=== PATIENT | female | born 1970 | race Caucasian/White ===

== ENCOUNTER → 2016-09-03 | Outpatient (CLI) | payer OTHER ==
--- NOTE | 2016-09-04 10:37 | MM ---
Reason for exam: screening (asymptomatic). Last mammogram was performed 1 year and 1 month ago. History: Breast lifts, 2012. Physical Findings: A clinical breast exam by your physician is recommended on an annual basis and results should be correlated with mammographic findings. MG Screening Mammo w CAD Bilateral CC and MLO view(s) were taken. Prior study comparison: April 05, 2014, bilateral MG screening mammo w CAD. There are scattered fibroglandular densities. There is no discrete abnormality. ASSESSMENT: Negative, BI-RAD 1 RECOMMENDATION: Routine screening mammogram of both breasts in 1 year.
== END | disposition home or self-care (01) ==
LOC: RADMAMWWP 06:50
PROVIDERS: ATTEND Obstetrics & Gynecology
DX: Z12.31 Encounter for screening mammogram for malignant neoplasm of breast (principal)

== ENCOUNTER → 2017-03-17 | Outpatient (CLI) | payer OTHER ==
[2017-03-17 14:19] VITALS: BP 141/84; PULSE 84; TEMP 98.2; BMI 27.4
--- NOTE | 2017-03-17 15:22 | P.HPBAR ---
Bariatric H&P - History & Physicial H&P Date: 03/17/17 History & Physicial: Visit/CC: lap band follow up Patient initial contact: Initial weight: 154.221 kg Initial weight in pounds: 340.00 Height: 5 ft 6 in Initial BMI: 54.8 Last weight: Current weight: 77.111 kg Current weight in pounds: 170.00 Current BMI: 27.4 [place] body weight (based on NIH guidelines): 58.967 kg Excess body weight loss: 80.9% The patient is a 47 year-old F who presents for Bariatric Assessment. Patient presents today for lab band follow up. She is requesting a fill of her LAP- BAND. Her band was emptied last visit for a repeat procedure. Past Medical History Past Medical History: No Reported History History of Any Multi-Drug Resistant Organisms: None Reported Past Surgical History: Bariatric Surgery, Section, Orthopedic Surgery Additional Past Surgical History / Comment(s): right knee meniscus repair lap band surgery panniculectomy Past Anesthesia/Blood Transfusion Reactions: No Reported Reaction Smoking Status: Never smoker Surgical - Exam Vital Signs Temp Pulse BP 98.2 F 84 141/84 03/17/17 14:15 03/17/17 14:15 03/17/17 14:15 - General well developed, no distress - Eyes PERRL - Abdomen Abdomen: soft, non tender Bariatric Assessment & Plan Plan: The patient LAP-BAND was adjusted. She had 4.5 mL added to her band. She'll follow-up in one month. Bariatric Checklist Checklist: Plan: Checklist: EGD: 1. Hiatal hernia: 2. H. Pylori: HgbA1c: Vitamin D: Smoking: Never smoker Primary care physician referral: [facility] Psychiatry clearance: Cardiology clearance: Sleep study: Diet journal: VTE risk score: VTE risk level: Rehab needs at discharge:
== END | disposition home or self-care (01) ==
LOC: BARWHC3 13:56
PROVIDERS: ATTEND Surgery
DX: Z48.815 Encounter for surgical aftercare following surgery on the digestive system (principal); Z98.84 Bariatric surgery status
CPT/HCPCS: 99212

== ENCOUNTER → 2017-03-24 | Outpatient (CLI) | payer OTHER ==
[2017-03-24 14:27] VITALS: BP 144/69; PULSE 72; RESP 15; TEMP 98; BMI 30.7
--- NOTE | 2017-03-24 16:15 | P.HPBAR ---
Bariatric H&P - History & Physicial H&P Date: 03/24/17 History & Physicial: Visit/CC: band fill (had to have emptied for knee sx on 03/14/17) Patient initial contact: Initial weight: 154.221 kg Initial weight in pounds: 340.00 Height: 5 ft 3 in Initial BMI: 60.2 Last weight: Current weight: 78.562 kg Current weight in pounds: 173.20 Current BMI: 30.7 [place] body weight (based on NIH guidelines): 52.163 kg Excess body weight loss: 74.1% The patient is a 47 year-old F who presents for Bariatric Assessment. The patient is requesting an adjustment of her LAP-BAND. She currently feels hungry. Past Medical History Past Medical History: No Reported History History of Any Multi-Drug Resistant Organisms: None Reported Past Surgical History: Bariatric Surgery, Section, Orthopedic Surgery Additional Past Surgical History / Comment(s): right knee meniscus repair lap band surgery, panniculectomy Past Anesthesia/Blood Transfusion Reactions: No Reported Reaction Past Psychological History: No Psychological Hx Reported Smoking Status: Never smoker Past Alcohol Use History: None Reported Past Drug Use History: None Reported Surgical - Exam Vital Signs Temp Pulse Resp BP 98.0 F 72 15 144/69 03/24/17 14:18 03/24/17 14:18 03/24/17 14:18 03/24/17 14:18 - General well developed, no distress - Abdomen Abdomen: soft, non tender Bariatric Assessment & Plan Plan: The patient LAP-BAND was adjusted. 1 mL was added to her band. She will follow -up in one month. She was able drink water without difficulty. Bariatric Checklist Checklist: Plan: Checklist: EGD: 1. Hiatal hernia: 2. H. Pylori: HgbA1c: Vitamin D: Smoking: Never smoker Primary care physician referral: [facility] Psychiatry clearance: Cardiology clearance: Sleep study: Diet journal: VTE risk score: VTE risk level: Rehab needs at discharge:
== END | disposition home or self-care (01) ==
LOC: BARWHC3 13:53
PROVIDERS: ATTEND Surgery
DX: Z48.815 Encounter for surgical aftercare following surgery on the digestive system (principal); Z98.84 Bariatric surgery status
CPT/HCPCS: 99212

== ENCOUNTER → 2017-12-30 | Outpatient (CLI) | payer OTHER ==
--- NOTE | 2017-12-30 15:32 | MM ---
Reason for exam: screening (asymptomatic). Last mammogram was performed 1 year and 4 months ago. History: Breast lifts, 2012. Physical Findings: A clinical breast exam by your physician is recommended on an annual basis and results should be correlated with mammographic findings. MG Screening Mammo w CAD Bilateral CC and MLO view(s) were taken. Prior study comparison: September 03, 2016, bilateral MG screening mammo w CAD. August 16, 2015, bilateral MG 3d diag mammo w/cad CORRY. The breast tissue is heterogeneously dense. This may lower the sensitivity of mammography. Finding: There are typically benign dystrophic, round calcifications in the left breast. There is no discrete abnormality. ASSESSMENT: Benign, BI-RAD 2 RECOMMENDATION: Routine screening mammogram of both breasts in 1 year.
== END ==
LOC: RADMAMWWP 07:04
PROVIDERS: ATTEND Obstetrics & Gynecology
DX: Z12.31 Encounter for screening mammogram for malignant neoplasm of breast (principal)
CPT/HCPCS: 77067

== ENCOUNTER 2021-11-13 15:01 | Emergency (ER) | payer OTHER ==
[2021-11-13 16:09] LABS: Basophils % (A) 1 %; Eosinophils # (A) 0.1 k/uL (0-0.7); Eosinophils % (A) 1 %; HCT 43.3 % (34.0-46.0); HGB 13.2 gm/dL (11.4-16.0); Lymphocytes # (A) 1.3 k/uL (1.0-4.8); Lymphocytes % (A) 15 %; MCH 27.1 pg (25.0-35.0); MCHC 30.4 g/dL (31.0-37.0); MCV 89.1 fL (80.0-100.0); Mean Platelet Volume 7.4; Monocytes # (A) 0.4 k/uL (0-1.0); Monocytes % (A) 5 %; Neutrophils # (A) 6.5 k/uL (1.3-7.7); Neutrophils % (A) 76 %; Platelet Count 211 k/uL (150-450); RBC 4.86 m/uL (3.80-5.40); RDW 12.9 % (11.5-15.5); WBC 8.5 k/uL (3.8-10.6)
[2021-11-13 16:20] LABS: ALT 10 U/L (4-34); AST 26 U/L (14-36); African American GFR (CKD) >90 (>60 ml/min/1.73 sqM); Albumin 4.4 g/dL (3.5-5.0); Alkaline Phosphatase 95 U/L (38-126); Amylase 164 U/L (30-110); Anion Gap 8 mmol/L; Blood Urea Nitrogen 17 mg/dL (7-17); Calcium 9.3 mg/dL (8.4-10.2); Carbon Dioxide 29 mmol/L (22-30); Chloride 103 mmol/L (98-107); Glucose 92 mg/dL (74-99); Lipase 127 U/L (23-300); Non-African American GFR(CKD) >90 (>60 ml/min/1.73 sqM); Potassium 3.8 mmol/L (3.5-5.1); Sodium 140 mmol/L (137-145); Total Bilirubin 0.4 mg/dL (0.2-1.3); Total Protein 7.5 g/dL (6.3-8.2)
[2021-11-13] MEDS ORDERED: MORPHINE SULFATE 2 MG/ML SYRINGE IVP STA (18:37)
[2021-11-13] MEDS ORDERED: ONDANSETRON 4 MG/2 ML VIAL IVP STA (18:37)
[2021-11-13] MEDS ORDERED: SODIUM CHLORIDE 0.9% 1,000 ML IV STA (18:37)
--- NOTE | 2021-11-13 19:00 | ED ---
Abdominal Pain HPI - General Chief Complaint: Abdominal Pain Stated Complaint: Abd pain Time Seen by Provider: 11/13/21 18:25 Source: patient Mode of arrival: ambulatory Limitations: no limitations - History of Present Illness Initial Comments: Patient is a 51-year-old female presenting with chief complaint of abdominal pain. Pain is located in the center of the abdomen, patient states it feels like a very tight squeezing pain that comes in waves. The pain radiates through to the back. At times the pain is so bad that she feels like she is going to vomit, denies any vomiting. Patient had lap band surgery performed by Dr. Hill in 2016, otherwise no other abdominal surgeries. Patient states that last week she was experiencing chest pain, however today she denies any chest pain or shortness of breath. Patient states the pain does not change with movement or different positions. Unchanged by food. Denies any diarrhea, constipation, hematochezia, melena, dysuria, hematuria, urgency, frequency. - Related Data Home Medications Medication Instructions Recorded Confirmed No Known Home Medications 03/17/17 11/13/21 Allergies Allergy/AdvReac Type Severity Reaction Status Date / Time No Known Allergies Allergy Verified 11/13/21 20:51 Review of Systems ROS Statement: Those systems with pertinent positive or pertinent negative responses have been documented in the HPI. ROS Other: All systems not noted in ROS Statement are negative. Past Medical History Past Medical History: No Reported History History of Any Multi-Drug Resistant Organisms: None Reported Past Surgical History: Bariatric Surgery, Section, Orthopedic Surgery Additional Past Surgical History / Comment(s): right knee meniscus repair 03-14-17 lap band surgery, panniculectomy Past Anesthesia/Blood Transfusion Reactions: No Reported Reaction Past Psychological History: No Psychological Hx Reported Smoking Status: Never smoker Past Alcohol Use History: None Reported Past Drug Use History: None Reported General Exam Limitations: no limitations General appearance: alert, in no apparent distress Head exam: Present: atraumatic, normocephalic, normal inspection Eye exam: Present: normal appearance, EOMI. Absent: scleral icterus Neck exam: Present: normal inspection Respiratory exam: Present: normal lung sounds bilaterally. Absent: respiratory distress, wheezes, rales, rhonchi, stridor Cardiovascular Exam: Present: regular rate, normal rhythm, normal heart sounds. Absent: systolic murmur, diastolic murmur, rubs, gallop, clicks GI/Abdominal exam: Present: soft, tenderness (Diffuse mild tenderness), normal bowel sounds. Absent: distended, guarding, rebound, rigid Neurological exam: Present: alert, oriented X3, CN II-XII intact Psychiatric exam: Present: normal affect, normal mood Skin exam: Present: warm, dry, intact, normal color. Absent: rash Course Vital Signs 11/13/21 11/13/21 11/13/21 15:34 20:39 22:00 Temperature 98.2 F 98.1 F 98.2 F Pulse Rate 51 L 66 78 Respiratory 18 15 16 Rate Blood Pressure 151/83 124/70 128/78 O2 Sat by Pulse 99 99 98 Oximetry Medical Decision Making - Medical Decision Making Patient is a 51-year-old female presenting with chief complaint of abdominal pain. Pain is colicky in nature, located in the center of the abdomen. She is still having bowel movements, denies any diarrhea or constipation. Patient underwent lap band surgery approximately 10 years ago performed by Dr. Madden. On examination there are normal bowel sounds in all 4 quadrants, patient has minimal tenderness diffusely. Abdomen is soft and nondistended. Patient was given fluids and 2 mg morphine. Lab work is grossly negative. Urine shows signs of contamination. KUB x-ray is suggestive of small bowel obstruction or ileus. CT of the abdomen and pelvis with contrast shows large stool burdened throughout the colon, no evidence of bowel obstruction. Lap band is in place with upstream esophageal dilation containing ingested contents. I spoke with Dr. Hill about these findings. He stated he would be able to see the patient in the office tomorrow at 9 AM. Educated the patient on these findings, I encouraged her to follow up with Dr. Hill at the bariatric center tomorrow morning. Educated her on bowel hygiene, encouraged the use of MiraLAX. Answered all questions and discussed return parameters alarm symptoms. Patient conveyed verbal understanding and agreed to the plan. My attending is Dr. Medina. - Lab Data Result diagrams: 11/13/21 15:44 11/13/21 15:44 Lab Results 11/13/21 11/13/21 11/13/21 Range/Units 15:44 15:44 18:43 WBC 8.5 (3.8-10.6) k/uL RBC 4.86 (3.80-5.40) m/uL Hgb 13.2 (11.4-16.0) gm/dL Hct 43.3 (34.0-46.0) % MCV 89.1 (80.0-100.0) fL MCH 27.1 (25.0-35.0) pg MCHC 30.4 L (31.0-37.0) g/dL RDW 12.9 (11.5-15.5) % Plt Count 211 (150-450) k/uL MPV 7.4 Neutrophils % 76 % Lymphocytes % 15 % Monocytes % 5 % Eosinophils % 1 % Basophils % 1 % Neutrophils # 6.5 (1.3-7.7) k/uL Lymphocytes # 1.3 (1.0-4.8) k/uL Monocytes # 0.4 (0-1.0) k/uL Eosinophils # 0.1 (0-0.7) k/uL Basophils # 0.0 (0-0.2) k/uL PT 10.6 (9.0-12.0) sec INR 1.0 (<1.2) APTT 22.1 (22.0-30.0) sec Sodium 140 (137-145) mmol/L Potassium 3.8 (3.5-5.1) mmol/L Chloride 103 (98-107) mmol/L Carbon Dioxide 29 (22-30) mmol/L Anion Gap 8 mmol/L BUN 17 (7-17) mg/dL Creatinine 0.71 (0.52-1.04) mg/dL Est GFR (CKD-EPI)AfAm >90 (>60 ml/min/1.73 sqM) Est GFR (CKD-EPI)NonAf >90 (>60 ml/min/1.73 sqM) Glucose 92 (74-99) mg/dL Plasma Lactic Acid Hemal (0.7-2.0) mmol/L Calcium 9.3 (8.4-10.2) mg/dL Total Bilirubin 0.4 (0.2-1.3) mg/dL AST 26 (14-36) U/L ALT 10 (4-34) U/L Alkaline Phosphatase 95 (38-126) U/L Troponin I (0.000-0.034) ng/mL Total Protein 7.5 (6.3-8.2) g/dL Albumin 4.4 (3.5-5.0) g/dL Amylase 164 H (30-110) U/L Lipase 127 (23-300) U/L Urine Color Urine Appearance (Clear) Urine pH (5.0-8.0) Ur Specific [place] (1.001-1.035) Urine Protein (Negative) Urine Glucose (UA) (Negative) Urine Ketones (Negative) Urine Blood (Negative) Urine Nitrite (Negative) Urine Bilirubin (Negative) Urine Urobilinogen (<2.0) mg/dL Ur Leukocyte Esterase (Negative) Urine RBC (0-5) /hpf Urine WBC (0-5) /hpf Ur Squamous Epith Cells (0-4) /hpf Urine Bacteria (None) /hpf Urine Mucus (None) /hpf Urine HCG, Qual (Not Detectd) 11/13/21 11/13/21 11/13/21 Range/Units 18:43 18:43 18:43 WBC (3.8-10.6) k/uL RBC (3.80-5.40) m/uL Hgb (11.4-16.0) gm/dL Hct (34.0-46.0) % MCV (80.0-100.0) fL MCH (25.0-35.0) pg MCHC (31.0-37.0) g/dL RDW (11.5-15.5) % Plt Count (150-450) k/uL MPV Neutrophils % % Lymphocytes % % Monocytes % % Eosinophils % % Basophils % % Neutrophils # (1.3-7.7) k/uL Lymphocytes # (1.0-4.8) k/uL Monocytes # (0-1.0) k/uL Eosinophils # (0-0.7) k/uL Basophils # (0-0.2) k/uL PT (9.0-12.0) sec INR (<1.2) APTT (22.0-30.0) sec Sodium (137-145) mmol/L Potassium (3.5-5.1) mmol/L Chloride (98-107) mmol/L Carbon Dioxide (22-30) mmol/L Anion Gap mmol/L BUN (7-17) mg/dL Creatinine (0.52-1.04) mg/dL Est GFR (CKD-EPI)AfAm (>60 ml/min/1.73 sqM) Est GFR (CKD-EPI)NonAf (>60 ml/min/1.73 sqM) Glucose (74-99) mg/dL Plasma Lactic Acid Hemal 1.4 (0.7-2.0) mmol/L Calcium (8.4-10.2) mg/dL Total Bilirubin (0.2-1.3) mg/dL AST (14-36) U/L ALT (4-34) U/L Alkaline Phosphatase (38-126) U/L Troponin I (0.000-0.034) ng/mL Total Protein (6.3-8.2) g/dL Albumin (3.5-5.0) g/dL Amylase (30-110) U/L Lipase (23-300) U/L Urine Color Yellow Urine Appearance Cloudy H (Clear) Urine pH 5.5 (5.0-8.0) Ur Specific [place] 1.028 (1.001-1.035) Urine Protein Trace H (Negative) Urine Glucose (UA) Negative (Negative) Urine Ketones 1+ H (Negative) Urine Blood Negative (Negative) Urine Nitrite Negative (Negative) Urine Bilirubin Negative (Negative) Urine Urobilinogen 2.0 (<2.0) mg/dL Ur Leukocyte Esterase Large H (Negative) Urine RBC 8 H (0-5) /hpf Urine WBC 33 H (0-5) /hpf Ur Squamous Epith Cells 20 H (0-4) /hpf Urine Bacteria Rare H (None) /hpf Urine Mucus Moderate H (None) /hpf Urine HCG, Qual Not Detected (Not Detectd) 11/13/21 Range/Units 18:43 WBC (3.8-10.6) k/uL RBC (3.80-5.40) m/uL Hgb (11.4-16.0) gm/dL Hct (34.0-46.0) % MCV (80.0-100.0) fL MCH (25.0-35.0) pg MCHC (31.0-37.0) g/dL RDW (11.5-15.5) % Plt Count (150-450) k/uL MPV Neutrophils % % Lymphocytes % % Monocytes % % Eosinophils % % Basophils % % Neutrophils # (1.3-7.7) k/uL Lymphocytes # (1.0-4.8) k/uL Monocytes # (0-1.0) k/uL Eosinophils # (0-0.7) k/uL Basophils # (0-0.2) k/uL PT (9.0-12.0) sec INR (<1.2) APTT (22.0-30.0) sec Sodium (137-145) mmol/L Potassium (3.5-5.1) mmol/L Chloride (98-107) mmol/L Carbon Dioxide (22-30) mmol/L Anion Gap mmol/L BUN (7-17) mg/dL Creatinine (0.52-1.04) mg/dL Est GFR (CKD-EPI)AfAm (>60 ml/min/1.73 sqM) Est GFR (CKD-EPI)NonAf (>60 ml/min/1.73 sqM) Glucose (74-99) mg/dL Plasma Lactic Acid Hemal (0.7-2.0) mmol/L Calcium (8.4-10.2) mg/dL Total Bilirubin (0.2-1.3) mg/dL AST (14-36) U/L ALT (4-34) U/L Alkaline Phosphatase (38-126) U/L Troponin I <0.012 (0.000-0.034) ng/mL Total Protein (6.3-8.2) g/dL Albumin (3.5-5.0) g/dL Amylase (30-110) U/L Lipase (23-300) U/L Urine Color Urine Appearance (Clear) Urine pH (5.0-8.0) Ur Specific [place] (1.001-1.035) Urine Protein (Negative) Urine Glucose (UA) (Negative) Urine Ketones (Negative) Urine Blood (Negative) Urine Nitrite (Negative) Urine Bilirubin (Negative) Urine Urobilinogen (<2.0) mg/dL Ur Leukocyte Esterase (Negative) Urine RBC (0-5) /hpf Urine WBC (0-5) /hpf Ur Squamous Epith Cells (0-4) /hpf Urine Bacteria (None) /hpf Urine Mucus (None) /hpf Urine HCG, Qual (Not Detectd) Disposition Clinical Impression: Constipation Disposition: HOME SELF-CARE Condition: Good Instructions (If sedation given, give patient instructions): Constipation (ED), High Fiber Diet (ED) Additional Instructions: Follow-up with Dr. Hill at the bariatric Center tomorrow at 9 AM. Follow-up with PCP in one to 2 days. Report back to ER if any worsening symptoms, including but not limited to worsening pain, vomiting, inability to have bowel movement pass flatulence, fever, chills, chest pain, shortness of breath, difficulty swallowing. Is patient prescribed a controlled substance at d/c from ED?: No Referrals: Jacky Curry MD [Primary Care Provider] - 1-2 days Stephan Hill MD [STAFF PHYSICIAN] - 1-2 days Time of Disposition: 21:27
[2021-11-13 19:11] LABS: Appearance,Urine Cloudy (Clear); Bacteria,Urine Rare /hpf; Bilirubin,Urine Negative (Negative); Blood,Urine Negative (Negative); Color,Urine Yellow; Glucose,Urine (UA) Negative (Negative); Ketones,Urine 1+ (Negative); Leukocyte Esterase,Urine Large (Negative); Mucus,Urine Moderate /hpf; Nitrite,Urine Negative (Negative); PH, Urine 5.5 (5.0-8.0); Protein,Urine Trace (Negative); RBC,Urine 8 /hpf (0-5); Specific Gravity,Urine 1.028 (1.001-1.035); Squamous Epithelial Cell,Urine 20 /hpf (0-4); WBC,Urine 33 /hpf (0-5)
[2021-11-13 19:14] LABS: Partial Thromboplastin Time 22.1 sec (22.0-30.0); Prothrombin Time 10.6 sec (9.0-12.0)
--- NOTE | 2021-11-13 19:43 | XR ---
EXAMINATION TYPE: XR KUB DATE OF EXAM: 11/13/2021 7:29 PM INDICATION: Patient age:Female; 51 years old; Reason for study: abdominal pain; COMPARISON: None. TECHNIQUE: One radiographic view of the abdomen was obtained. FINDINGS: Gastric lap band is present. Angle appears appropriate. There is a prior and tubing appear intact. Multiple air-fluid levels are seen throughout the predominantly right abdomen also on the lef t as well. IMPRESSION: Multiple air-fluid levels throughout the abdomen. Clinical correlation and further workup for small b owel obstruction and/or ileus is recommended.
--- NOTE | 2021-11-13 20:37 | CT ---
EXAMINATION TYPE: CT abdomen pelvis w con CT DLP: 811.9 mGycm, Automated exposure control for dose reduction was used. DATE OF EXAM: 11/13/2021 8:17 PM COMPARISON: None CLINICAL INDICATION:Female, 51 years old with history of Epigastric pain; TECHNIQUE: Standard CT of the abdomen and pelvis following the administration of 100 cc of Isovue 300 IV contrast material and oral contrast. Coronal and sagittal reformats were performed. FINDINGS: LOWER CHEST: Unremarkable ABDOMEN LIVER: Unremarkable GALLBLADDER AND BILE DUCTS: Unremarkable. PANCREAS: Unremarkable. SPLEEN: Unremarkable. ADRENAL GLANDS: Unremarkable. KIDNEYS AND URETERS: No evidence of hydronephrosis or renal calculus. The ureters are unremarkable. PELVIS BLADDER: Unremarkable REPRODUCTIVE: Unremarkable. ABDOMEN & PELVIS STOMACH AND BOWEL: Gastric lap band is identified and appears within appropriate position. There is l ayering fluid within the distal esophagus which is partially dilated. There is a large stool burden s een throughout the colon predominantly fluid from the cecum to the descending colon and feces within the sigmoid colon and rectum. No evidence of bowel obstruction. PERITONEUM: No evidence of pneumoperitoneum or free fluid. VASCULATURE: No evidence of aortic aneurysm. MUSCULOSKELETAL: No acute osseous abnormalities. LYMPH NODES: No gross evidence for lymphadenopathy. SOFT TISSUE/ABDOMINAL WALL: Unremarkable IMPRESSION: 1. Lap band in place with upstream esophageal dilation containing ingested contents. Correlate for re flux and/or dysmotility. 2. Large stool burden throughout the colon which is dilated with fluid in the cecum to descending col on and formed fecal material in the sigmoid colon. No evidence of bowel obstruction.
[2021-11-13 22:02] VITALS: BP 128/78; PULSE 78; RESP 16; TEMP 98.2
== END 2021-11-13 22:00 | disposition home or self-care (01) ==
LOC: EC 15:01
DX: K59.00 Constipation, unspecified (principal)
CPT/HCPCS: 99284; 96374; 96375; 36415; 93005; 80053; 82150; 83605; 83690; 84484; 85025; 85610; 85730; 81001; 81025; 87086; 74018; 74177; 96361; J2405; J2270; Q9967

== ENCOUNTER → 2021-11-14 | Outpatient (CLI) | payer OTHER ==
[2021-11-14 09:30] VITALS: BP 116/74; PULSE 69; TEMP 98.2; BMI 27.3
--- NOTE | 2021-11-14 10:10 | P.HPBAR ---
Bariatric H&P - History & Physicial H&P Date: 11/14/21 History & Physicial: Visit/CC: lap band follow up Patient initial contact: Initial weight: 154.221 kg Initial weight in pounds: 340.00 Height: 5 ft 3 in Initial BMI: 60.2 Last weight: Current weight: 69.853 kg Current weight in pounds: 154.00 Current BMI: 27.3 [place] body weight (based on NIH guidelines): 52.163 kg Excess body weight loss: 82.6% The patient is a 51 year-old F who presents for Bariatric Assessment. Patient dysphagia and epigastric pain. Receiving mention last night. She is found have dilated esophagus suggestive of a restrictive LAP-BAND. Past Medical History Past Medical History: No Reported History History of Any Multi-Drug Resistant Organisms: None Reported Past Surgical History: Bariatric Surgery, Section, Orthopedic Surgery Additional Past Surgical History / Comment(s): right knee meniscus repair 03-14-17 lap band surgery, panniculectomy Past Anesthesia/Blood Transfusion Reactions: No Reported Reaction Past Psychological History: No Psychological Hx Reported Smoking Status: Never smoker Past Alcohol Use History: None Reported Past Drug Use History: None Reported Surgical - Exam Vital Signs Temp Pulse BP 98.2 F 69 116/74 11/14/21 09:27 11/14/21 09:27 11/14/21 09:27 - General well developed, well nourished, no distress - Eyes PERRL - ENT normal pinna - Neck no masses - Respiratory normal expansion - Cardiovascular Rhythm: regular - Abdomen Abdomen: soft, non tender Bariatric Assessment & Plan Plan: Patient's LAP-BAND was just. She has 6.3 mL removed from the band. Her band is currently empty. Patient will be scheduled for ultrasound and HIDA scan. She'll follow-up next week. Bariatric Checklist Checklist: Plan: Checklist: EGD: 1. Hiatal hernia: 2. H. Pylori: HgbA1c: Vitamin D: Smoking: Never smoker Primary care physician referral: [email or web address] Psychiatry clearance: Cardiology clearance: Sleep study: Diet journal: VTE risk score: VTE risk level: Rehab needs at discharge:
== END ==
LOC: BARWHC3 09:21
PROVIDERS: ATTEND Surgery
DX: Z46.51 Encounter for fitting and adjustment of gastric lap band (principal)
CPT/HCPCS: 99212

== ENCOUNTER → 2021-11-15 | Outpatient (CLI) | payer OTHER ==
--- NOTE | 2021-11-15 22:48 | NM ---
EXAMINATION TYPE: NM hepatobiliary w CCK DATE OF EXAM: 11/15/2021 COMPARISON: CT abdomen and pelvis 2 days ago. HISTORY: Epigastric pain. TECHNIQUE: After the intravenous administration of 4.1 mCi Tc 99m Mebrofenin hepatobiliary scintigrap hy is performed. Immediate images post injection. FINDINGS: There is satisfactory initial accumulation of tracer by the liver. The gallbladder is visualized wit hin 60 minutes. The small bowel activity is noted within 15 minutes. At one hour CCK was administer ed, patient was injected with 1.4 mcg of Kinevac, and gallbladder ejection fraction is calculated at 77 %, not deviated from the normal range. Therefore there is no scintigraphic evidence of cystic or common bile duct obstruction to suggest acute cholecystitis or gallbladder hypokinesia. IMPRESSION: Ejection fraction is 77%, some consider this abnormal or a hyperkinetic response
== END | disposition home or self-care (01) ==
LOC: RADNMMAIN 12:20
PROVIDERS: ATTEND Surgery
DX: R10.13 Epigastric pain (principal)
CPT/HCPCS: 78227; A9537; J2805

== ENCOUNTER → 2021-11-19 | Outpatient (CLI) | payer OTHER ==
--- NOTE | 2021-11-19 15:40 | US ---
EXAMINATION TYPE: US gallbladder DATE OF EXAM: 11/19/2021 COMPARISON: NONE CLINICAL HISTORY: 51-year-old female R10.13 with epigastric pain for 3 weeks. Patient had breakfast 2 hours before the exam. TECHNIQUE: Multiple sonographic images of the right upper quadrant are obtained. FINDINGS: EXAM MEASUREMENTS: Liver Length: 13.7 cm Gallbladder Wall: 3.6 cm. CBD: 0.85 cm Right Kidney: 9.7 x 4.8 x 4.0 cm Pancreas: Tail obscured by overlying bowel gas. Visualized portions show no gross abnormality. Liver: wnl Gallbladder: Collapse. Mild wall thickening likely relating to the nondistention. No stones or surro unding fluid. Evidence for sonographic Slade's sign: No CBD: Mildly dilated. Right Kidney: No hydronephrosis. IMPRESSION: 1. Mildly dilated bile duct at 8.5 mm. Correlate with alkaline phosphatase and bilirubin levels to ex clude early biliary obstruction. 2. However, the collapsed state of the gallbladder argues against a biliary obstruction.
== END | disposition home or self-care (01) ==
LOC: RADUSWWP 10:00
PROVIDERS: ATTEND Surgery
DX: K83.8 Other specified diseases of biliary tract (principal); K82.8 Other specified diseases of gallbladder
CPT/HCPCS: 76705

== ENCOUNTER 2021-11-21 08:03 | Day surgery (SDC) | payer OTHER ==
[2021-11-20 15:24] VITALS: BMI 27.3
[~2021-11-21 08:03] MED LIST: ACETAMINOPHEN TAB 500 MG TAB PO PRN; HEPARIN SODIUM,PORCINE/PF 5,000 UNIT/0.5 ML SYRINGE SQ PRN
[2021-11-21] MEDS ORDERED: LACTATED RINGERS 1,000 ML IV ONE (08:35)
[2021-11-21] MEDS ORDERED: ONDANSETRON 4 MG/2 ML VIAL ONE ×2 (08:41→14:26)
[2021-11-21] MEDS ORDERED: ONDANSETRON 4 MG/2 ML VIAL IVP ONE ×2 (08:46→14:29)
[2021-11-21] MEDS ORDERED: DEXAMETHASONE SOD PHOSPHATE 4 MG/ML 1 ML VIAL IVP ONE (08:47)
[2021-11-21] MEDS ORDERED: SCOPOLAMINE 1 MG/72 HR PATCH TRANSDERM ONE (08:48)
--- NOTE | 2021-11-21 09:07 | P.GSHP ---
History of Present Illness H&P Date: 11/21/21 Chief Complaint: Right upper quadrant pain This is a 51-year-old female who presents today for laparoscopic cholecystectomy. Patient's had complaints of right quadrant pain. Her recent HIDA scan ARE SUGGESTIVE CHRONIC CHOLECYSTITIS. PATIENT HAS HAD PREVIOUS BARIATRIC SURGERY. SHE IS LOSS IN EXCESS OF 160 POUNDS. Past Medical History Past Medical History: No Reported History Additional Past Medical History / Comment(s): c/o abd/chest pain, excess gas, diarrhea History of Any Multi-Drug Resistant Organisms: None Reported Past Surgical History: Bariatric Surgery, Breast Surgery, Section, Orthopedic Surgery, Tubal Ligation Additional Past Surgical History / Comment(s): right knee meniscus repair, lap band surgery, panniculectomy, breast implants Past Anesthesia/Blood Transfusion Reactions: No Reported Reaction Smoking Status: Never smoker - Past Family History Mother Family Medical History: Cancer Additional Family Medical History / Comment(s): cervical cancer Father Family Medical History: Myocardial Infarction ([place]) Additional Family Medical History / Comment(s): at 51 from [place] Medications and Allergies Home Medications Medication Instructions Recorded Confirmed Type No Known Home Medications 03/17/17 11/21/21 History Allergies Allergy/AdvReac Type Severity Reaction Status Date / Time No Known Allergies Allergy Verified 11/21/21 08:23 Surgical - Exam Vital Signs Temp Pulse Resp BP Pulse Ox 97.4 F L 86 16 105/65 95 11/21/21 08:23 11/21/21 08:23 11/21/21 08:23 11/21/21 08:23 11/21/21 08:23 - General well developed, well nourished, no distress - Eyes PERRL - ENT normal pinna - Neck no masses - Respiratory normal expansion - Cardiovascular Rhythm: regular - Abdomen Abdomen: soft, non tender Assessment and Plan Assessment: Chronically size. We'll perform laparoscopic cholecystectomy.
[2021-11-21] MEDS ORDERED: ROCURONIUM 10 MG/ML (5 ML VIAL) IV ONE (09:21)
[2021-11-21] MEDS ORDERED: LIDOCAINE 2% INJ 20 MG/ML (2 ML VIAL) ONE (09:21)
[2021-11-21] MEDS ORDERED: KETOROLAC 15 MG/ML 1 ML VIAL ONE (09:21)
[2021-11-21] MEDS ORDERED: SUCCINYLCHOLINE CHLORIDE 100 MG/5 ML SYR IV ONE (09:21)
[2021-11-21] MEDS ORDERED: PROPOFOL 10 MG/ML 20 ML VIAL IV ONE (09:21)
[2021-11-21] MEDS ORDERED: fentaNYL (PF) 50 MCG/ML 2 ML AMP ONE (09:21)
[2021-11-21] MEDS ORDERED: GLYCOPYRROLATE 0.2 MG/ML 2 ML VIAL ONE (09:21)
[2021-11-21] MEDS ORDERED: KETAMINE 10 MG/ML 20 ML VIAL ONE (09:21)
[2021-11-21] MEDS ORDERED: HYDROmorphone (PF) 1 MG/ML ONE (09:21)
[2021-11-21] MEDS ORDERED: NEOSTIGMINE 1 MG/ML 10 ML VIAL ONE (09:21)
[2021-11-21] MEDS ORDERED: MIDAZOLAM 2 MG/2 ML VIAL ONE (09:21)
[2021-11-21] MEDS ORDERED: BUPIVACAIN-EPI 0.25%-1:200,000 30 ML VIAL SQ ONE (09:45)
--- NOTE | 2021-11-21 10:16 | P.OP ---
Date of Procedure: 11/21/21 Preoperative Diagnosis: Cholecystitis Postoperative Diagnosis: Cholecystitis Procedure(s) Performed: Laparoscopic cholecystectomy Anesthesia: ABELARDO Surgeon: Stephan Hill Estimated Blood Loss (ml): 5 Pathology: other (Gallbladder) Condition: stable Disposition: PACU Description of Procedure: The patient was placed on the operating table. The patient received a general endotracheal tube anesthesia. The patients abdomen was prepped and draped in the usual sterile fashion. Through an infraumbilical stab incision, the fascia of the anterior abdominal wall was grasped with a pair of Kochers and then the Veress needle was placed in the peritoneal cavity. Position of the Veress needle was confirmed with positive drop test. The abdomen was then insufflated. After adequate insufflation, the 10 mm trocar was placed in the peritoneal cavity. Following this the laparoscope was placed in the peritoneal cavity. The patient was placed in the head-up, right side up position and then a 5 mm trocar was placed in the right lateral and right subcostal position under direct visualization. A 8 mm trocar was placed in the epigastric position. The gallbladder was grasped in the fundus and infundibulum. Traction on the gallbladder was placed in the lateral and the cephalad positions. The triangle of Calot was visualized.. The cystic duct was bluntly dissected until the union of the cystic duct and common bile duct was seen. A critical view of safety was achieved. The cystic duct was then divided and sealed with the Harmonic scissors. A PDS Endoloop was then placed throughout the cystic duct stump. The cystic artery divided and sealed with the Harmonic scissors. The gallbladder was then removed from the liver bed using Harmonic scissors. The gallbladder was then extracted through the epigastric port site. Operative field was checked for any bleeding spots and Harmonic scissors was used to coagulate the liver bed. The abdomen was irrigated. The trocars were removed. The skin was closed using interrupted 3-0 Vicryl suture. Dermabond dressing were applied. The patient tolerated the procedure well.
[2021-11-21 10:42] VITALS: TEMP 97.2
[2021-11-21 13:04] VITALS: RESP 16
[2021-11-21 15:09] VITALS: BP 112/77; PULSE 78
== END 2021-11-21 15:36 | disposition home or self-care (01) ==
LOC: OR 08:03
PROVIDERS: ATTEND Surgery
DX: K81.1 Chronic cholecystitis (principal); Z98.84 Bariatric surgery status; Z98.891 History of uterine scar from previous surgery; Z98.51 Tubal ligation status; Z98.890 Other specified postprocedural states; Z80.49 Family history of malignant neoplasm of other genital organs; Z82.49 Family history of ischemic heart disease and other diseases of the circulatory system
CPT/HCPCS: 88304; 47562; J2250; J1100; J2710; J0690; J2405; J3010; J1170; J1885; J0330; J2704; J1644; J2001

== ENCOUNTER → 2021-12-10 | Outpatient (CLI) | payer OTHER ==
[2021-12-10 13:58] VITALS: BP 113/74; PULSE 76; TEMP 98.3; BMI 31.5
--- NOTE | 2021-12-21 11:22 | P.HPBAR ---
Bariatric H&P - History & Physicial H&P Date: 12/10/21 History & Physicial: Visit/CC: lap band fill Patient initial contact: Initial weight: 154.221 kg Initial weight in pounds: 340.00 Height: 5 ft 3 in Initial BMI: 60.2 Last weight: Current weight: 80.739 kg Current weight in pounds: 178.00 Current BMI: 31.5 [place] body weight (based on NIH guidelines): 52.163 kg Excess body weight loss: 71.9% Hungry. The patient is a 51 year-old F who presents for Bariatric Assessment. Patient presents today for LAP-BAND adjustment. She feels hungry. Past Medical History Past Medical History: No Reported History Additional Past Medical History / Comment(s): c/o abd/chest pain, excess gas, diarrhea History of Any Multi-Drug Resistant Organisms: None Reported Past Surgical History: Bariatric Surgery, Breast Surgery, Section, Cholecystectomy, Orthopedic Surgery, Tubal Ligation Additional Past Surgical History / Comment(s): right knee meniscus repair, lap band surgery, panniculectomy, breast implants Past Anesthesia/Blood Transfusion Reactions: No Reported Reaction Smoking Status: Never smoker - Past Family History Mother Family Medical History: Cancer Additional Family Medical History / Comment(s): cervical cancer Father Family Medical History: Myocardial Infarction ([place]) Additional Family Medical History / Comment(s): at 51 from [place] Surgical - Exam Vital Signs Temp Pulse BP 98.3 F 76 113/74 12/10/21 13:54 12/10/21 13:54 12/10/21 13:54 - General well developed, well nourished, no distress - Eyes PERRL - ENT normal pinna - Neck no masses - Respiratory normal expansion - Cardiovascular Rhythm: regular - Abdomen Abdomen: soft, non tender Bariatric Assessment & Plan Plan: Patient has 6 mL added to her LAP-BAND. She will follow-up in 4 weeks. Bariatric Checklist Checklist: Plan: Checklist: EGD: 1. Hiatal hernia: 2. H. Pylori: HgbA1c: Vitamin D: Smoking: Never smoker Primary care physician referral: [facility] Psychiatry clearance: Cardiology clearance: Sleep study: Diet journal: VTE risk score: VTE risk level: Rehab needs at discharge:
== END ==
LOC: BARWHC3 13:30
PROVIDERS: ATTEND Surgery
DX: Z46.51 Encounter for fitting and adjustment of gastric lap band (principal)
CPT/HCPCS: 99212

== ENCOUNTER → 2022-01-07 | Outpatient (CLI) | payer OTHER ==
[2022-01-07 14:39] VITALS: BP 132/77; PULSE 69; TEMP 98.4; BMI 31.5
--- NOTE | 2022-01-08 16:08 | P.HPBAR ---
Bariatric H&P - History & Physicial H&P Date: 01/07/22 History & Physicial: Visit/CC: lap band f/u Patient initial contact: Initial weight: 154.221 kg Initial weight in pounds: 340.00 Height: 5 ft 3 in Initial BMI: 60.2 Last weight: Current weight: 80.739 kg Current weight in pounds: 178.00 Current BMI: 31.5 [place] body weight (based on NIH guidelines): 52.163 kg Excess body weight loss: 71.9% The patient is a 51 year-old F who presents for Bariatric Assessment. Patient resents today for LAP-BAND follow-up. She requesting a fill of her band. She currently is hungry. Past Medical History Past Medical History: No Reported History Additional Past Medical History / Comment(s): c/o abd/chest pain, excess gas, diarrhea History of Any Multi-Drug Resistant Organisms: None Reported Past Surgical History: Bariatric Surgery, Breast Surgery, Section, Cholecystectomy, Orthopedic Surgery, Tubal Ligation Additional Past Surgical History / Comment(s): right knee meniscus repair, lap band surgery, panniculectomy, breast implants Past Anesthesia/Blood Transfusion Reactions: No Reported Reaction Past Psychological History: No Psychological Hx Reported Smoking Status: Never smoker Past Alcohol Use History: Rare Past Drug Use History: None Reported - Past Family History Mother Family Medical History: Cancer Additional Family Medical History / Comment(s): cervical cancer Father Family Medical History: Myocardial Infarction ([place]) Additional Family Medical History / Comment(s): at 51 from [place] Surgical - Exam Vital Signs Temp Pulse BP 98.4 F 69 132/77 01/07/22 14:33 01/07/22 14:33 01/07/22 14:33 - General well developed, well nourished, no distress - Eyes PERRL - ENT normal pinna - Neck no masses - Respiratory normal expansion - Cardiovascular Rhythm: regular - Abdomen Abdomen: soft, non tender Bariatric Assessment & Plan Plan: Patient's LAP-BAND was adjusted. She had 0.3 mL added to the band. He is ALLERGIC without difficulty. She will follow-up in 4 weeks. Bariatric Checklist Checklist: Plan: Checklist: EGD: 1. Hiatal hernia: 2. H. Pylori: HgbA1c: Vitamin D: Smoking: Never smoker Primary care physician referral: [facility] Psychiatry clearance: Cardiology clearance: Sleep study: Diet journal: VTE risk score: VTE risk level: Rehab needs at discharge:
== END ==
LOC: BARWHC3 13:45
PROVIDERS: ATTEND Surgery
DX: Z46.51 Encounter for fitting and adjustment of gastric lap band (principal); Z98.84 Bariatric surgery status
CPT/HCPCS: 99212

== ENCOUNTER → 2022-01-21 | Outpatient (CLI) | payer OTHER ==
[2022-01-21 14:47] VITALS: BP 123/85; PULSE 72; TEMP 98.6; BMI 32.8
--- NOTE | 2022-01-21 15:25 | P.HPBAR ---
Bariatric H&P - History & Physicial H&P Date: 01/21/22 History & Physicial: Visit/CC: lap band Patient initial contact: Initial weight: 154.221 kg Initial weight in pounds: 340.00 Height: 5 ft 3 in Initial BMI: 60.2 Last weight: Current weight: 83.915 kg Current weight in pounds: 185.00 Current BMI: 32.8 [place] body weight (based on NIH guidelines): 52.163 kg Excess body weight loss: 68.8% The patient is a 52 year-old F who presents for Bariatric Assessment. Patient presents today for [place] follow-up. She is requesting a fill of her band. She feels. Hungry. Past Medical History Past Medical History: No Reported History Additional Past Medical History / Comment(s): c/o abd/chest pain, excess gas, diarrhea History of Any Multi-Drug Resistant Organisms: None Reported Past Surgical History: Bariatric Surgery, Breast Surgery, Section, Cholecystectomy, Orthopedic Surgery, Tubal Ligation Additional Past Surgical History / Comment(s): right knee meniscus repair, lap band surgery, panniculectomy, breast implants Past Anesthesia/Blood Transfusion Reactions: No Reported Reaction Past Psychological History: No Psychological Hx Reported Smoking Status: Never smoker Past Alcohol Use History: Rare Past Drug Use History: None Reported - Past Family History Mother Family Medical History: Cancer Additional Family Medical History / Comment(s): cervical cancer Father Family Medical History: Myocardial Infarction ([place]) Additional Family Medical History / Comment(s): at 51 from [place] Surgical - Exam Vital Signs Temp Pulse BP 98.6 F 72 123/85 01/21/22 14:44 01/21/22 14:44 01/21/22 14:44 - General well developed, well nourished, no distress - Eyes PERRL - ENT normal pinna - Neck no masses - Respiratory normal expansion - Cardiovascular Rhythm: regular - Abdomen Abdomen: soft, non tender Bariatric Assessment & Plan Plan: Patient LAP-BAND was adjusted to 0.5 mL added to the band. She currently is 4.8 mL in the band. She'll follow-up in 4 weeks. Bariatric Checklist Checklist: Plan: Checklist: EGD: 1. Hiatal hernia: 2. H. Pylori: HgbA1c: Vitamin D: Smoking: Never smoker Primary care physician referral: [facility] Psychiatry clearance: Cardiology clearance: Sleep study: Diet journal: VTE risk score: VTE risk level: Rehab needs at discharge:
== END ==
LOC: BARWHC3 14:30
PROVIDERS: ATTEND Surgery
DX: Z46.51 Encounter for fitting and adjustment of gastric lap band (principal)
CPT/HCPCS: 99211

== ENCOUNTER → 2022-03-19 | Outpatient (CLI) | payer OTHER ==
--- NOTE | 2022-03-19 08:23 | MM ---
Reason for Exam: Hx of breast augmentation, asymptomatic. Last mammogram was performed 4 year(s) and 3 month(s) ago. Patient History: Menarche at age 13. First Full-Term at age 24. Postmenopausal. Bilateral Implants. Risk Values: [place] 5 year model risk: 0.9%. NCI Lifetime model risk: 7.8%. Prior Study Comparison: 08/16/2015 Bilateral Diagnostic Mammogram, [facility]. 09/03/2016 Bilateral Screening Mammogram, [facility]. 12/30/2017 Bilateral Screening Mammogram, [facility]. Tissue Density: The breast tissue is heterogeneously dense. This may lower the sensitivity of mammography. Findings: Analyzed By CAD. There is no suspicious group of microcalcifications or new suspicious mass in either breast. No bilateral breast prosthesis. No significant change from prior exams. Overall Assessment: Benign, BI-RAD 2 Management: Screening Mammogram of both breasts in 1 year. A clinical breast exam by your physician is recommended on an annual basis and results should be correlated with mammographic findings. Electronically signed and approved by: Elliott Gonzalez D.O.
== END | disposition home or self-care (01) ==
LOC: RADMAMWWP 07:04
PROVIDERS: ATTEND Obstetrics & Gynecology
DX: Z12.31 Encounter for screening mammogram for malignant neoplasm of breast (principal); Z78.0 Asymptomatic menopausal state
CPT/HCPCS: 77063; 77067

== ENCOUNTER → 2022-11-18 | Outpatient (CLI) | payer OTHER ==
[2022-11-18 14:43] VITALS: BP 137/84; PULSE 67; TEMP 98.2; BMI 32.1
--- NOTE | 2022-11-19 08:47 | P.HPBAR ---
Bariatric H&P - History & Physicial H&P Date: 11/18/22 History & Physicial: Visit/CC: lap band Patient initial contact: Initial weight: 154.221 kg Initial weight in pounds: 340.00 Height: 5 ft 3 in Initial BMI: 60.2 Last weight: Current weight: 82.1 kg Current weight in pounds: 181.00 Current BMI: 32.1 [place] body weight (based on NIH guidelines): 52.163 kg Excess body weight loss: 70.6% The patient is a 52 year-old F who presents for Bariatric Assessment. Patient resents today for LAP-BAND follow-up. She requesting a fill her band. She currently feels hungry. She's lost 4 pounds since her last visit. Past Medical History Past Medical History: No Reported History Additional Past Medical History / Comment(s): c/o abd/chest pain, excess gas, diarrhea History of Any Multi-Drug Resistant Organisms: None Reported Past Surgical History: Bariatric Surgery, Breast Surgery, Section, Cholecystectomy, Orthopedic Surgery, Tubal Ligation Additional Past Surgical History / Comment(s): right knee meniscus repair, lap band surgery, panniculectomy, breast implants Past Anesthesia/Blood Transfusion Reactions: No Reported Reaction Smoking Status: Never smoker - Past Family History Mother Family Medical History: Cancer Additional Family Medical History / Comment(s): cervical cancer Father Family Medical History: Myocardial Infarction ([place]) Additional Family Medical History / Comment(s): at 51 from [place] Surgical - Exam Vital Signs Temp Pulse BP 98.2 F 67 137/84 11/18/22 14:40 11/18/22 14:40 11/18/22 14:40 - General well developed, well nourished, no distress - Eyes PERRL - ENT normal pinna - Neck no masses - Respiratory normal expansion - Cardiovascular Rhythm: regular - Abdomen Abdomen: soft, non tender Bariatric Assessment & Plan Plan: Patient LAP-BAND was just. She had 1 mL added to the band. She currently has 5.8 mL in the band. She'll follow-up in 4 weeks. Bariatric Checklist Checklist: Plan: Checklist: EGD: 1. Hiatal hernia: 2. H. Pylori: HgbA1c: Vitamin D: Smoking: Never smoker Primary care physician referral: [facility] Psychiatry clearance: Cardiology clearance: Sleep study: Diet journal: VTE risk score: VTE risk level: Rehab needs at discharge:
== END ==
LOC: BARWHC3 14:32
PROVIDERS: ATTEND Surgery
DX: E66.01 Morbid (severe) obesity due to excess calories (principal); Z46.51 Encounter for fitting and adjustment of gastric lap band; Z68.32 Body mass index [BMI] 32.0-32.9, adult
CPT/HCPCS: 99212

== ENCOUNTER → 2022-11-20 | Outpatient (CLI) | payer OTHER ==
--- NOTE | 2022-11-20 09:37 | P.HPBAR ---
Bariatric H&P - History & Physicial H&P Date: 11/20/22 History & Physicial: Visit/CC: Patient initial contact: Initial weight: 154.221 kg Initial weight in pounds: Height: 5 ft 3 in Initial BMI: Last weight: Current weight: 78.109 kg Current weight in pounds: Current BMI: [place] body weight (based on NIH guidelines): Excess body weight loss: The patient is a 52 year-old F who presents for Bariatric Assessment. Patient has complaints of dysphagia since her LAP-BAND fill. She has lost 9 pounds over the last 4 days. Past Medical History Past Medical History: No Reported History Additional Past Medical History / Comment(s): c/o abd/chest pain, excess gas, diarrhea History of Any Multi-Drug Resistant Organisms: None Reported Past Surgical History: Bariatric Surgery, Breast Surgery, Section, Cholecystectomy, Orthopedic Surgery, Tubal Ligation Additional Past Surgical History / Comment(s): right knee meniscus repair, lap band surgery, panniculectomy, breast implants Past Anesthesia/Blood Transfusion Reactions: No Reported Reaction Smoking Status: Never smoker - Past Family History Mother Family Medical History: Cancer Additional Family Medical History / Comment(s): cervical cancer Father Family Medical History: Myocardial Infarction ([place]) Additional Family Medical History / Comment(s): at 51 from [place] Surgical - Exam - General well developed, well nourished, no distress - Eyes PERRL - ENT normal pinna - Neck no masses - Respiratory normal expansion - Cardiovascular Rhythm: regular - Abdomen Abdomen: soft, non tender Bariatric Assessment & Plan Plan: Patient's LAP-BAND was adjusted. 0.5 mL removed for diverticulitis. 3 mL Initial follow-up in one week Bariatric Checklist Checklist: Plan: Checklist: EGD: 1. Hiatal hernia: 2. H. Pylori: HgbA1c: Vitamin D: Smoking: Never smoker Primary care physician referral: [facility] Psychiatry clearance: Cardiology clearance: Sleep study: Diet journal: VTE risk score: VTE risk level: Rehab needs at discharge:
[2022-11-20 09:57] VITALS: BP 110/78; PULSE 79; TEMP 98.2; BMI 30.4
== END ==
LOC: BARWHC3 09:24
PROVIDERS: ATTEND Surgery
DX: E66.01 Morbid (severe) obesity due to excess calories (principal); Z68.30 Body mass index [BMI] 30.0-30.9, adult; Z46.51 Encounter for fitting and adjustment of gastric lap band
CPT/HCPCS: 99212